=== PATIENT | male | born 1960 | race Caucasian/White ===

== ENCOUNTER 2025-06-15 08:25 | Emergency (ER) | payer MEDICARE ==
[~2025-06-15] VITALS: Ht 175.3 cm; Wt 90.0 kg
[2025-06-15 08:50] VITALS: BP 136/61; PULSE 68; RESP 18; TEMP 98.1; O2SAT 97
== END 2025-06-15 09:06 | disposition home or self-care (01) ==
LOC: EMS 08:25
DX: S70.10XA Contusion of unspecified thigh, initial encounter (principal); F03.90 Unspecified dementia, unspecified severity, without behavioral disturbance, psychotic disturbance, mood disturbance, and anxiety; W19.XXXA Unspecified fall, initial encounter; Y93.89 Activity, other specified; Y92.89 Other specified places as the place of occurrence of the external cause; Y99.8 Other external cause status
CPT/HCPCS: 99283; Z7502